=== PATIENT | female | born 1930 | race Caucasian/White ===

== ENCOUNTER 2019-09-20 13:52 | Emergency (ER) | payer MEDICARE, OTHER ==
[~2019-09-20] VITALS: Ht 160 cm; Wt 64.0 kg
--- NOTE | 2019-09-20 14:03 | NUR ---
PT BIB [facility], PER EMS REPORT, PT WAS PLAYING CHAIR VOLLEYBALL AND SHE FELL BACKWARD AND HIT THE BACK OF HER HEAD, -LOC. PT WITH LARGE GOOSE EGG TO BACK OF L SCALP. PT DENIES DIZZINESS, CP, SOB. PT TO BP, CONT PULSE OX
--- NOTE | 2019-09-20 15:36 | NUR ---
PT RESTING ON GURNEY AT THIS TIME, DAUGHTER AND CAREGIVER AT BEDSIDE. PT AWAITING TO GO TO CT. VSS, NAD NOTED
[2019-09-20 16:58] VITALS: BP 132/61
--- NOTE | 2019-09-20 17:12 | NUR ---
MD IN TO UPDATE PT ON POC, PT TO DC.
== END 2019-09-20 17:52 | disposition home or self-care (01) ==
LOC: ED 17:15
DX: S00.03XA Contusion of scalp, initial encounter (principal); W18.30XA Fall on same level, unspecified, initial encounter; Y93.89 Activity, other specified; Y92.89 Other specified places as the place of occurrence of the external cause; Y99.8 Other external cause status
CPT/HCPCS: 70450; 99284